=== PATIENT | male | born 1965 | race Caucasian/White ===

== ENCOUNTER → 2020-10-17 | Outpatient (CLI) | payer OTHER ==
[~2020-10-17] MED LIST: DOCUSATE SODIU250 MG PO; IBUPROFEN200 M1 PO; PERCOCET 5-3251 EACH PO; PHENERGAN 12.12.5 M1 PO; TYLENOL 500 MG500 MG PO
== END ==
LOC: KOH-I 10-10 15:15
DX: M25.512 Pain in left shoulder (principal); M75.52 Bursitis of left shoulder; M25.412 Effusion, left shoulder
CPT/HCPCS: 73221